=== PATIENT | female | born 1940 | race Two or more races ===

== ENCOUNTER 2021-12-05 21:09 | Inpatient (IN) | payer OTHER ==
[~2021-12-05] VITALS: Ht 152.4 cm; Wt 72.6 kg
[2021-12-05] MEDS ORDERED: DIOVAN40 MG PO (21:27)
[2021-12-05] MEDS ORDERED: GRALISE600 MG PO (21:28)
[2021-12-05] MEDS ORDERED: RESTORIL15 M1 PO (21:28)
[2021-12-07] MEDS ORDERED: CARVEDILOL25 M1 (16:35)
[2021-12-07] MEDS ORDERED: PANTOPRAZOLE SO40 MG (16:36)
[2021-12-07] MEDS ORDERED: FAMOTIDINE40 MG (16:37)
[2021-12-07] MEDS ORDERED: MELOXICAM15 MG (16:37)
[2021-12-07] MEDS ORDERED: SPIRONOLACTONE25 MG (16:37)
[2021-12-07] MEDS ORDERED: VALSARTAN-HCTZ1 EAC3 (16:37)
[2021-12-07] MEDS ORDERED: PRAVASTATIN SOD40 MG (16:37)
[2021-12-07] MEDS ORDERED: AMLODIPINE BESYL5 MG (16:37)
[2021-12-22] MEDS ORDERED: SIMVASTATIN40 MG PO (13:11)
[2021-12-22] MEDS ORDERED: VALSARTAN-HCTZ1 EAC3 PO (13:12)
[2021-12-22] MEDS ORDERED: SPIRONOLACTONE25 MG PO (13:13)
[2021-12-22] MEDS ORDERED: GRALISE600 MG PO (13:14)
[2021-12-22] MEDS ORDERED: PRE PROTEIN1 EACH PO (13:14)
[2021-12-22] MEDS ORDERED: INTESTINEX680 M1 PO (13:14)
[2021-12-22] MEDS ORDERED: PANTOPRAZOLE SO40 MG PO (13:15)
[2021-12-22] MEDS ORDERED: INTEGRA PLUS C1 EACH PO (13:16)
[2021-12-22] MEDS ORDERED: RESTORIL15 MG PO (13:18)
[2021-12-22] MEDS ORDERED: Neurin-Sl Tablet Sl SL (13:18)
[2021-12-22] MEDS ORDERED: B Complex CAPSULE PO (13:18)
[2021-12-22] MEDS ORDERED: CARVEDILOL25 MG PO (13:19)
== END 2021-12-22 17:30 | disposition home or self-care (01) | DRG 690 ==
LOC: ER 21:09 → SEC-K 12-06 18:33 → MEDI 12-06 18:33 → MEDJ 12-06 20:22 → SEC-K 12-06 20:52 → SURG 12-06 21:46 → MEDI 12-07 02:20 → SURG 12-07 02:28 → MEDI 12-07 02:36
PROVIDERS: ADMIT Internal Medicine; ATTEND Internal Medicine
PROC: BR2CZZZ Computerized Tomography (CT Scan) of Pelvis (ICD-10-PCS; principal; 2021-12-06)
PROC: 02HV33Z Insertion of Infusion Device into Superior Vena Cava, Percutaneous Approach (ICD-10-PCS; 2021-12-07)
PROC: BW21YZZ Computerized Tomography (CT Scan) of Abdomen and Pelvis using Other Contrast (ICD-10-PCS; 2021-12-10)
PROC: CW1NLZZ Planar Nuclear Medicine Imaging of Whole Body using Gallium 67 (Ga-67) (ICD-10-PCS; 2021-12-11)
PROC: BW24ZZZ Computerized Tomography (CT Scan) of Chest and Abdomen (ICD-10-PCS; 2021-12-14)
DX: N39.0 Urinary tract infection, site not specified (principal); E87.1 Hypo-osmolality and hyponatremia; N17.8 Other acute kidney failure; J90 Pleural effusion, not elsewhere classified; K62.5 Hemorrhage of anus and rectum; A04.72 Enterocolitis due to Clostridium difficile, not specified as recurrent; E86.0 Dehydration; E87.6 Hypokalemia; K57.30 Diverticulosis of large intestine without perforation or abscess without bleeding; I72.2 Aneurysm of renal artery; D75.838 Other thrombocytosis; D72.828 Other elevated white blood cell count; K62.7 Radiation proctitis; M25.561 Pain in right knee; I10 Essential (primary) hypertension; D64.9 Anemia, unspecified; E03.8 Other specified hypothyroidism; Z20.822 Contact with and (suspected) exposure to COVID-19; Z85.42 Personal history of malignant neoplasm of other parts of uterus